=== PATIENT | female | born 1985 | race Caucasian/White ===

== ENCOUNTER 2016-12-23 21:43 | Inpatient (IN) | payer MEDICAID, OTHER ==
[2016-12-23] MEDS ORDERED: ceFAZolin 1,000 MG VIAL IM STA (22:12)
[2016-12-23] MEDS ORDERED: DIPH,PERTUS(ACELL)TETVAC-LF 0.5 ML VIAL IM ONE (22:13)
--- NOTE | 2016-12-23 22:19 | ED ---
General Adult HPI - General Chief complaint: Psychiatric Symptoms Stated complaint: mental health Time Seen by Provider: 12/23/16 21:50 Source: patient, RN notes reviewed Mode of arrival: ambulatory Limitations: no limitations - History of Present Illness Initial comments: This is a 31-year-old female who presents to the emergency department stating she is suicidal. Patient states the court system took her kids away and let another woman and her ex- adopted children. Patient states at that point in time she took a bunch heroin and injected it 5 days ago along with that she took a bunch of her gabapentin. Patient states she woke up 2 days later. Patient states she went down to [place] at which point time she stated she fell and had a puncture wound to her left hand and she believes that there is a little bit red. Patient states she hasn't had a tetanus shot recently. Patient states since 5 days ago she has not done any other drugs or taking any other extra prescription medications. Patient states she had 1 shot of alcohol today but no more. Patient states she still cannot stop thinking about killing herself because she cannot see her children and so she decided to come to the emergency department. Patient denies any headache patient denies numbness weakness. Patient denies any nausea vomiting or diarrhea. Patient denies any chest pain palpitations difficulty breathing or shortness of breath per patient denies any abdominal pain. Patient denies any numbness weakness. Patient states she does have contractures of her right wrist and hand. She states that is from a surgery 9 months ago to relieve carpal tunnel syndrome. - Related Data Home Medications Medication Instructions Recorded Confirmed Albuterol Nebulized [Ventolin 2.5 mg INHALATION RT-BID 12/23/16 12/23/16 Nebulized] DULoxetine HCL [Cymbalta] 60 mg PO DAILY 12/23/16 12/23/16 Gabapentin 600 mg PO TID 12/23/16 12/23/16 HYDROcodone/APAP 10-325MG [[place] 1 tab PO QID PRN 12/23/16 12/23/16 10-325] Ibuprofen [Motrin] 600 mg PO BID PRN 12/23/16 12/23/16 Montelukast [Singulair] 10 mg PO DAILY 12/23/16 12/23/16 Nortriptyline [Pamelor] 50 mg PO BID 12/23/16 12/23/16 Allergies Allergy/AdvReac Type Severity Reaction Status Date / Time bee pollen Allergy Swelling Verified 12/23/16 22:35 coconut oil Allergy Swelling Verified 12/23/16 22:35 Penicillins Allergy Swelling Verified 12/23/16 22:35 shellfish derived [Shellfish] Allergy Swelling Verified 12/23/16 22:35 Review of Systems ROS Statement: Those systems with pertinent positive or pertinent negative responses have been documented in the HPI. ROS Other: All systems not noted in ROS Statement are negative. Past Medical History Past Medical History: Asthma Additional Past Medical History / Comment(s): chronic knee pain, right ganglion cyst. History of Any Multi-Drug Resistant Organisms: None Reported Past Surgical History: Tubal Ligation Additional Past Surgical History / Comment(s): right hand surgery, left knee arthroscopy, right carpal tunnel release. Past Psychological History: Anxiety, Depression Smoking Status: Current every day smoker Past Alcohol Use History: None Reported Past Drug Use History: Heroin, Marijuana, Prescription Drug Abuse General Exam - General Exam Comments Initial Comments: GENERAL: Patient is well-developed and well-nourished. Patient is nontoxic and well- hydrated and is in mild distress. ENT: Neck is soft and supple. No significant lymphadenopathy is noted. Oropharynx is clear. Moist mucous membranes. Neck has full range of motion without eliciting any pain. EYES: The sclera were anicteric and conjunctiva were pink and moist. Extraocular movements were intact and pupils were equal round and reactive to light. Eyelids were unremarkable. PULMONARY: Unlabored respirations. Good breath sounds bilaterally. No audible rales rhonchi or wheezing was noted. CARDIOVASCULAR: There is a regular rate and rhythm without any murmurs gallops or rubs. ABDOMEN: Soft and nontender with normal bowel sounds. No palpable organomegaly was noted. There is no palpable pulsatile mass. SKIN: Skin is clear with no lesions or rashes and otherwise unremarkable. NEUROLOGIC: Patient is alert and oriented x3. Cranial nerves II through XII are grossly intact. Motor and sensory are also intact. Normal speech, volume and content. Symmetrical smile. MUSCULOSKELETAL: Patient has a puncture wound in the middle of her left hand on the palmar surface is mildly erythematous around the puncture wound there is no fluctuation and there does not appear to be any abscess. LYMPHATICS: No significant lymphadenopathy is noted PSYCHIATRIC: Patient states she suicidal ever since the court system is taken away her children. Limitations: no limitations Course Vital Signs 12/23/16 21:44 Temperature 98.9 F Pulse Rate 86 Respiratory 28 H Rate Blood Pressure 173/120 O2 Sat by Pulse 95 Oximetry Medical Decision Making - Medical Decision Making EKG shows a normal sinus rhythm at [address] interval is on a 48 QRS is 72 QT interval 380 QTC is 446 per patient's EKG shows no ST segment elevation or depression or T wave abnormalities are noted. - Lab Data Lab Results 12/23/16 Range/Units 22:40 Urine Opiates Screen Not Detected (NotDetected) Ur Oxycodone Screen Not Detected (NotDetected) Urine Methadone Screen Not Detected (NotDetected) Ur Propoxyphene Screen Not Detected (NotDetected) Ur Barbiturates Screen Not Detected (NotDetected) U Tricyclic Antidepress Detected H (NotDetected) Ur Phencyclidine Scrn Not Detected (NotDetected) Ur Amphetamines Screen Not Detected (NotDetected) U Methamphetamines Scrn Not Detected (NotDetected) U Benzodiazepines Scrn Detected H (NotDetected) Urine Cocaine Screen Detected H (NotDetected) U Marijuana (THC) Screen Detected H (NotDetected) Disposition Clinical Impression: Suicidal ideation, Depression Disposition: ADMITTED IP TO THIS HOSP Referrals: Ryanne Guillory DO [Primary Care Provider] - 1-2 days Time of Disposition: 01:41
--- NOTE | 2016-12-23 22:54 | XR ---
EXAM: XR Left Hand Complete, 3 or More Views. CLINICAL HISTORY: Reason: Pain TECHNIQUE: Frontal, lateral and oblique views of the left hand. COMPARISON: No relevant prior studies available. FINDINGS: Bones: There is a ring overlying the fourth proximal phalanx, limiting evaluation. No acute fracture. Joints: Unremarkable. No dislocation. Soft tissues: Unremarkable. No radiopaque foreign body. IMPRESSION: No acute findings.
[2016-12-24] MEDS ORDERED: LORazepam 1 MG TAB PO PRN (02:10)
[2016-12-24] MEDS ORDERED: MAG HYDROX/AL HYDROX/SIMETH 30 ML CUP PO PRN (02:10)
[2016-12-24] MEDS ORDERED: MAGNESIUM HYDROXIDE 2,400 MG/10 ML CUP PO PRN (02:10)
[2016-12-24] MEDS ORDERED: ZIPRASIDONE 20 MG VIAL IM PRN (02:10)
[2016-12-24] MEDS ORDERED: LORazepam 2 MG/ML SYRINGE IM PRN (02:13)
[2016-12-24 02:41] LABS: Appearance,Urine Cloudy (Clear); Bilirubin,Urine Negative (Negative); Calcium Oxalate Crystals,Urine Occasional /hpf; Glucose,Urine (UA) Negative (Negative); Ketones,Urine Negative (Negative); Leukocyte Esterase,Urine Negative (Negative); Mucus,Urine Many /hpf; Nitrite,Urine Negative (Negative); PH, Urine 6.5 (5.0-8.0); Particle Count 6429; Protein,Urine Trace (Negative); RBC,Urine 1 /hpf (0-5); Specific Gravity,Urine 1.022 (1.001-1.035); Squamous Epithelial Cell,Urine 7 /hpf (0-4); UA Billing (MACRO vs. MICRO) MICRO; WBC,Urine 1 /hpf (0-5)
[2016-12-24 03:27] VITALS: BMI 38.0
[2016-12-24] MEDS: IBUPROFEN 600 MG TAB PO PRN ×2 (03:43→19:00)
[2016-12-24] MEDS ORDERED: NICOTINE 21MG/24HR PATCH TRANSDERM SCH (09:00)
[2016-12-24] MEDS: DULoxetine HCL 60 MG CAPSULE.DR PO SCH (09:46)
[2016-12-24] MEDS: GABAPENTIN 300 MG CAP PO SCH ×3 (09:46→21:43)
[2016-12-24] MEDS: MONTELUKAST 10 MG TAB PO SCH (09:46)
[2016-12-24] MEDS: NICOTINE POLACRILEX 2 MG GUM BUCCAL PRN ×3 (09:49→15:58)
[2016-12-24] MEDS: oxyCODONE-APAP 10-325MG 1 EACH TAB PO PRN ×3 (09:50→21:42)
[2016-12-24] MEDS: clonazePAM 0.5 MG TAB PO PRN ×2 (09:50→19:00)
--- NOTE | 2016-12-24 10:12 | P.HP ---
Psychiatric H&P - . H&P Date: 12/24/16 History & Physical: IDENTIFYING DATA: Ms. Santiago is a 31-year-old female who presented to unit voluntarily with complaints of depression and suicidal ideation. HISTORY OF PRESENT ILLNESS: She stated that she was doing "fairly well" until she received notification that her ex-boyfriend and his new are adopting their 2 children. The adoption hearing was held last Friday in [facility]. She alleges that her corporate associate attorney "quit" the day before and she was unable to attend the adoption hearing. When she received the news that her children have been adopted she went to [place], injected "$300 of heroin"and took all of her gabapentin and Cymbalta in a suicide attempt. She alleged she "woke up" 2 days later and called her . She described continued feelings depression and thoughts of suicide. Her wanted to come in hospital because he feels she is unsafe to be left alone. In addition she complains of chronic, severe and persistent pain in her right hand that extends upper arm to her neck and down her opposite arm. The pain began with what was diagnosed as carpal tunnel syndrome. Following surgery for relief of the carpal tunnel on her right arm she developed worsening pain affecting her right arm, shoulder and neck. She stated that she was referred to [facility] for evaluation of pain and diagnosed with a complex regional pain syndrome. She describes the pain is persistent and crippling; "like I'm holding my hand and fire all the time." She reported mild to moderately for pain with the current regimen that includes Neurontin and Percocet. These medications are prescribed by regional pain specialist. Her depression symptoms include sadness, pessimism, loss of pleasure, guilty feelings, punishment feelings, self dislike, suicidal thoughts or wishes, self criticalness, loss of interest, worthlessness, loss of energy, changes in sleeping pattern, changes in appetite, concentration difficulty and tiredness or fatigue. She complains of anxiety that is present throughout the day and contributes to her restlessness and difficulty sleeping. She denied anxiety symptoms suggestive of panic attack. She denied periods of elevated mood or sustained irritability consistent with fareed or hypomania. She denied use of alcohol and denied use of drugs and the above episode where she attempted to overdose on heroin. However, her UDS was positive for tricyclic antidepressants , benzodiazepines, cocaine and marijuana. Her blood alcohol level was 0. PAST PSYCHIATRIC HISTORY: This is his third admission to this psychiatric unit. Alex to her in 2006 and 2007. Her discharge diagnoses from the October 2007 admission was bipolar disorder, mixed, history of ADHD, likely opiate dependence , polysubstance abuse, histrionic and borderline personality traits , homelessness and occupational stressors. Her discharge medications include Geodon and Klonopin. She denied admission to other psychiatric facilities. She is currently not involved in mental health treatment. PAST MEDICAL HISTORY: She has a history of asthma, chronic knee pain, right ganglion cyst and the diagnosis of complex regional pain syndrome. Her surgeries include carpal tunnel release, left knee arthroscopic surgery and tubal ligation. ALLERGIES: Penicillin. SUBSTANCE USE HISTORY: She has a history of opiate use disorder and alleged that she had been abstinent for 3 years until she injected the heroin last week. She stated that she has used most other drugs but denied that they were a problem; "I would take anything that someone would offer me." She stated she had a problem with alcohol "in the past" but denied current abuse. She denied involvement in substance abuse treatment programs. She scorned her experiences with narcotics and Alcoholics Anonymous. Tobacco use: She alleges that she was sleep walking 2-3 packs per day prior to admission FAMILY PSYCHIATRIC/SUBSTANCE USE HISTORY: She alleges that both her mother and father were "drug addicts". Her cousins are "junkies" and her answers are "alcoholics". LEGAL HISTORY: She denied that she is on probation, parole or has pending charges. According to information in the [facility] court docket she has passed charges for: Domestic violence, larceny in a building, home invasion first-degree, attempted larceny, disorderly persons, obstructing a health officer, SOCIAL HISTORY: She was born and raised in intact family in [place]. She has an older sister. She alleges that her parents neglected her because of their drug use. She has attended special education and left school in 11th grade. She is able to read, has no difficulty with arithmetic but is unable to spell. She had 2 children with a long-term boyfriend. They in 2006 and he was awarded custody. She was able to visit the children when he lived in [facility]. He moved from [place] [facility] [place] 2 years ago. She has had no contact with the children and did not know their whereabouts until she received a letter from [facility] notified her that her and his are petitioning to adopt the children. 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 She has been 2 years and described a supportive relationship with her . She lives in her 's mother's home with her . They have no children. He is currently unemployed. He works unskilled factory jobs. MENTAL STATUS EXAM: She presented as a morbidly obese acutely distressed 31-year -old female. She was tearful and dramatic. She made eye contact and attended to the interview. Her right fingers and wrist were contracted. She cradled her right arm. She was unable to fully extend her wrist and fingers. She was unable to elevate her right arm above the shoulder. She had a distressed facial expression. She was alert and oriented to person, place and time. She was restless and appeared to demonstrate intermittent tics and tremor. Her speech was dysarthric, spontaneous with increased rate but normal volume. Her affect was depressed, labile at times intense and appropriate and at other times reactive. She describes suicidal ideation or wishes. She denied homicidal ideation. She expresses feelings of hopelessness, helplessness and worthlessness. She ruminated about her pain, inability to work and distress over the adoption of her 2 children. She did not express phobias, ideas reference, paranoid ideation or delusional thinking. Her thinking was concrete and her associations were coherent and logical. She did not express clang associations, perseveration, neologisms or blocking. She denied hallucinations and did not appear to responding to internal stimuli. Global impression of intellect is below average. She is aware of her illness and need for mental health treatment. STRENGTHS: Stable housing, supportive relationships. WEAKNESSES: recurrent drug use, poor coping skills, poor problem-solving skills. IMPRESSION: She is a 31-year-old woman who has a developmental disability; most likely learning disability, conduct disorder, substance use disorders and a chronic pain disorder presented to the unit with complaints of depression and suicidal ideation. Her mood changes markedly after she learned that her ex- boyfriend and his new have adopted their 2 children. Her reaction to the adoption is surprising since he was awarded custody of the children after they and she has had no contact with her children for last 2 years. She is pain and medication focused. She complains of depression and described the full gamut of depressive symptoms. There is no evidence of psychotic symptoms. I could find no evidence of a history of fareed or hypomania. She should best be treated on an outpatient basis with a combination of psychopharmacology and multimodal therapy. PRINCIPLE DIAGNOSIS: Unspecified depressive disorder, rule out major depressive disorder, rule out opiate use disorder, rule out cocaine use disorder, unspecified learning disorder, unspecified personality disorder, complex regional pain syndrome RECOMMENDATION: Continue inpatient psychiatric hospitalization. Suicide precautions with 15 minute checks. Consult medicine for initial physical exam and medical history. Continue Cymbalta 60 mg daily and Neurontin 600 mg 3 times a day. Continue outpatient pain medication Percocet 10/325 4 times a day when necessary (verified prescription). Klonopin 0.5 mg 3 times a day when necessary for anxiety. Discuss augmentation of Cymbalta with a second generation antipsychotic such as Abilify. Encourage participation in therapeutic groups and activities. Evaluate clinical status response to treatment on a daily basis. Allergies Allergy/AdvReac Type Severity Reaction Status Date / Time bee pollen Allergy Swelling Verified 12/24/16 03:56 coconut oil Allergy Swelling Verified 12/24/16 03:56 Penicillins Allergy Swelling Verified 12/24/16 03:56 shellfish derived [Shellfish] Allergy Swelling Verified 12/24/16 03:56 Vital Signs Temp 97.0 F L 12/24/16 03:18 Pulse 69 12/24/16 03:18 Resp 17 12/24/16 03:18 BP 141/87 12/24/16 03:18 Pulse Ox 99 12/24/16 03:18 Intake & Output 12/23/16 12/24/16 12/24/16 18:59 06:59 18:59 Weight 116.743 kg Laboratory Last Values Urine Color Yellow 12/23/16 22:40 Urine Appearance Cloudy (Clear) H 12/23/16 22:40 Urine pH 6.5 (5.0-8.0) 12/23/16 22:40 Ur Specific [place] 1.022 (1.001-1.035) 12/23/16 22:40 Urine Protein Trace (Negative) H 12/23/16 22:40 Urine Glucose (UA) Negative (Negative) 12/23/16 22:40 Urine Ketones Negative (Negative) 12/23/16 22:40 Urine Blood Negative (Negative) 12/23/16 22:40 Urine Nitrite Negative (Negative) 12/23/16 22:40 Urine Bilirubin Negative (Negative) 12/23/16 22:40 Urine Urobilinogen 2.0 mg/dL (<2.0) 12/23/16 22:40 Ur Leukocyte Esterase Negative (Negative) 12/23/16 22:40 Urine RBC 1 /hpf (0-5) 12/23/16 22:40 Urine WBC 1 /hpf (0-5) 12/23/16 22:40 Ur Squamous Epith Cells 7 /hpf (0-4) H 12/23/16 22:40 Calcium Oxalate Crystal Occasional /hpf (None) H 12/23/16 22:40 Urine Mucus Many /hpf (None) H 12/23/16 22:40 Urine Opiates Screen Not Detected (NotDetected) 12/23/16 22:40 Ur Oxycodone Screen Not Detected (NotDetected) 12/23/16 22:40 Urine Methadone Screen Not Detected (NotDetected) 12/23/16 22:40 Ur Propoxyphene Screen Not Detected (NotDetected) 12/23/16 22:40 Ur Barbiturates Screen Not Detected (NotDetected) 12/23/16 22:40 U Tricyclic Antidepress Detected (NotDetected) H 12/23/16 22:40 Ur Phencyclidine Scrn Not Detected (NotDetected) 12/23/16 22:40 Ur Amphetamines Screen Not Detected (NotDetected) 12/23/16 22:40 U Methamphetamines Scrn Not Detected (NotDetected) 12/23/16 22:40 U Benzodiazepines Scrn Detected (NotDetected) H 12/23/16 22:40 Urine Cocaine Screen Detected (NotDetected) H 12/23/16 22:40 U Marijuana (THC) Screen Detected (NotDetected) H 12/23/16 22:40 12/24/16 07:42 12/24/16 07:45 12/24/16 09:37
[2016-12-24] MEDS: ACETAMINOPHEN TAB 325 MG TAB PO PRN ×2 (12:35→21:08)
[2016-12-24] MEDS: ALBUTEROL NEBULIZED 2.5 MG/3 ML INHALATION SCH ×2 (12:42→20:38)
--- NOTE | 2016-12-24 19:47 | P.HPIM ---
History of Present Illness H&P Date: 12/24/16 Chief Complaint: Depression with Suicidal ideation This is a 31-year-old female who presents to the emergency department stating she is having suicidal thoughts. Patient states the court system took her kids away and let another woman and her ex- adopt her children. Patient states at that point in time she took a bunch heroin and injected it 5 days ago along with that she took a bunch of her gabapentin. Patient states she woke up 2 days later. Patient states since 5 days ago she has not done any other drugs or taking any other extra prescription medications. Patient states she had 1 shot of alcohol today but no more. Patient states she still cannot stop thinking about killing herself because she cannot see her children and so she decided to come to the emergency department. On review of systems Patient denies any headache patient denies numbness weakness. Patient denies any chest pain palpitations or shortness of breath per patient denies any abdominal pain, no nausea or vomiting no diarrhea or constipation Patient states she does have contractures of her right wrist and hand. She states that is from a surgery 9 months ago to relieve carpal tunnel syndrome. And since then she has a severe contracture in her hand Past Medical History Past Medical History: Asthma Additional Past Medical History / Comment(s): chronic knee pain, right ganglion cyst. History of Any Multi-Drug Resistant Organisms: None Reported Past Surgical History: Tubal Ligation Additional Past Surgical History / Comment(s): right hand surgery, left knee arthroscopy, right carpal tunnel release. Past Anesthesia/Blood Transfusion Reactions: No Reported Reaction Past Psychological History: Anxiety, Depression Smoking Status: Current every day smoker Past Alcohol Use History: None Reported Past Drug Use History: Heroin, Marijuana, Prescription Drug Abuse Medications and Allergies Home Medications Medication Instructions Recorded Confirmed Type Albuterol Nebulized [Ventolin 2.5 mg INHALATION RT-BID 12/23/16 12/24/16 History Nebulized] DULoxetine HCL [Cymbalta] 60 mg PO DAILY 12/23/16 12/24/16 History Gabapentin 600 mg PO TID 12/23/16 12/24/16 History HYDROcodone/APAP 10-325MG [[place]yl[place] 1 tab PO QID PRN 12/23/16 12/24/16 History 10-325] Ibuprofen [Motrin] 600 mg PO BID PRN 12/23/16 12/24/16 History Montelukast [Singulair] 10 mg PO DAILY 12/23/16 12/24/16 History Nortriptyline [Pamelor] 50 mg PO BID 12/23/16 12/24/16 History Allergies Allergy/AdvReac Type Severity Reaction Status Date / Time bee pollen Allergy Swelling Verified 12/24/16 03:56 coconut oil Allergy Swelling Verified 12/24/16 03:56 Penicillins Allergy Swelling Verified 12/24/16 03:56 shellfish derived [Shellfish] Allergy Swelling Verified 12/24/16 03:56 Physical Exam Vitals: Vital Signs Temp Pulse Pulse Resp BP BP Pulse Ox 12/24/16 03:18 97.0 F L 69 17 141/87 99 12/24/16 02:51 97.5 F L 73 16 131/79 98 12/23/16 21:44 98.9 F 86 28 H 173/120 95 Intake and Output 12/24/16 12/24/16 12/24/16 06:59 14:59 22:59 Other: Weight 116.743 kg In general patient is alert and oriented 3 in no apparent distress HEENT head normocephalic and atraumatic Neck is supple no JVD no goiter no lymphadenopathy Cardiac exam reveals regular heart sounds S1 and S2 no gallops no murmurs Chest exam reveals a few scattered rhonchi bilaterally Abdomen is soft nontender no organomegaly with normal bowel sounds Extremity exam reveals no edema no cyanosis or clubbing, there is severe contracture in the right hand which is chronic per patient Neurological examination reveals no gross deficit Results Labs: Abnormal Lab Results - Last 24 Hours (Table) 12/23/16 12/23/16 Range/Units 22:40 22:40 Urine Appearance Cloudy H (Clear) Urine Protein Trace H (Negative) Ur Squamous Epith Cells 7 H (0-4) /hpf Calcium Oxalate Crystal Occasional H (None) /hpf Urine Mucus Many H (None) /hpf U Tricyclic Antidepress Detected H (NotDetected) U Benzodiazepines Scrn Detected H (NotDetected) Urine Cocaine Screen Detected H (NotDetected) U Marijuana (THC) Screen Detected H (NotDetected) Thrombosis Risk Factor Assmnt - Choose All That Apply Any of the Below Risk Factors Present?: Yes Each Factor Represents 1 point: Obesity (BMI >25) Other Risk Factors: No Other congenital or acquired thrombophilia - If yes, enter type in comment: No Thrombosis Risk Factor Assessment Total Risk Factor Score: 1 Thrombosis Risk Factor Assessment Level: Low Risk Assessment and Plan Plan: #1 depression with suicidal thoughts management per primary psychiatry team #2 asthma stable at this time continue was current inhaler #3 left knee swelling and pain follow up with primary care physician who performed knee aspiration and steroid injection on a regular basis for patient #4 right hand contracture chronic At this time home medications reviewed and reordered continue with current regimen Will follow during this admission for medical management
[2016-12-24] MEDS ORDERED: HALOPERIDOL 1 MG TAB PO SCH (21:00)
[2016-12-25 06:56] VITALS: BP 133/81; PULSE 68; RESP 18; TEMP 97.5
[2016-12-25] MEDS: oxyCODONE-APAP 10-325MG 1 EACH TAB PO PRN ×2 (06:57→12:34)
[2016-12-25] MEDS: GABAPENTIN 300 MG CAP PO SCH (08:12)
[2016-12-25] MEDS: MONTELUKAST 10 MG TAB PO SCH (08:12)
[2016-12-25] MEDS: DULoxetine HCL 60 MG CAPSULE.DR PO SCH (08:12)
[2016-12-25] MEDS: clonazePAM 0.5 MG TAB PO PRN (08:12)
[2016-12-25 11:49] LABS: ALT 25 U/L (9-52); AST 22 U/L (14-36); Alkaline Phosphatase 67 U/L (38-126); Anion Gap 7 mmol/L; Blood Urea Nitrogen 11 mg/dL (7-17); Calcium 8.9 mg/dL (8.4-10.2); Carbon Dioxide 26 mmol/L (22-30); Chloride 105 mmol/L (98-107); Glucose 87 mg/dL (74-99); Non-African American GFR(MDRD) >60 (>60 ml/min/1.73 sqM); Potassium 4.6 mmol/L (3.5-5.1); Sodium 138 mmol/L (137-145); Total Bilirubin 0.5 mg/dL (0.2-1.3); Total Protein 6.9 g/dL (6.3-8.2)
[2016-12-25 11:57] LABS: Basophils # (A) 0.1 k/uL (0-0.2); Basophils % (A) 1 %; CH 30.6; CHCM 32.4; Eosinophils # (A) 0.1 k/uL (0-0.7); Eosinophils % (A) 1 %; HCT 38.1 % (34.0-46.0); HDW 2.39; Luc # (Auto) 0.21; Luc % (Auto) 3; Lymphocytes # (A) 2.7 k/uL (1.0-4.8); Lymphocytes % (A) 37 %; MCHC 31.6 g/dL (31.0-37.0); MCV 94.9 fL (80.0-100.0); Mean Platelet Volume 7.2; Monocytes # (A) 0.3 k/uL (0-1.0); Monocytes % (A) 4 %; Neutrophils # (A) 3.9 k/uL (1.3-7.7); Neutrophils % (A) 54 %; RBC 4.01 m/uL (3.80-5.40); RDW 14.4 % (11.5-15.5); WBC 7.3 k/uL (3.8-10.6); WBC (Perox) 7.72
--- NOTE | 2016-12-25 13:43 | P.DS ---
Providers Date of admission: 12/24/16 01:42 Attending physician: Sriram Isidro MD Consults: 12/24/16 02:10 Consult Physician Routine Consulting Provider: Alexander Carroll Consult Reason/Comments: For H & P for Medical Follow Up Do you want consulting provider notified?: Yes, Notify in am Primary care physician: Ryanne Guillory - Discharge Diagnosis(es) (1) Opioid use disorder, severe, dependence Status: Chronic Priority: High (2) Depressive disorder, not elsewhere classified Status: Acute Priority: Low (3) Complex regional pain syndrome i of right upper limb Status: Chronic Priority: High (4) Unspecified personality disorder Status: Chronic Priority: Medium (5) Suicidal ideation Status: Acute Priority: Low Hospital Course: Ms. Santiago is a 31-year-old female who presented to unit voluntarily with complaints of depression and suicidal ideation. She stated that she was doing "fairly well" until she received notification that her ex-boyfriend and his new are adopting their 2 children. The adoption hearing was held last Friday in [facility]. She alleges that her data recovery planner "quit" the day before and she was unable to attend the adoption hearing. When she received the news that her children have been adopted she went to [place], injected "$300 of heroin"and took all of her gabapentin and Cymbalta in a suicide attempt. She alleged she "woke up" 2 days later and called her . She described continued feelings depression and thoughts of suicide. Her wanted to come in hospital because he feels she is unsafe to be left alone. In addition she complains of chronic, severe and persistent pain in her right hand that extends upper arm to her neck and down her opposite arm. The pain began with what was diagnosed as carpal tunnel syndrome. Following surgery for relief of the carpal tunnel on her right arm she developed worsening pain affecting her right arm, shoulder and neck. She stated that she was referred to [facility] for evaluation of pain and diagnosed with a complex regional pain syndrome. She describes the pain is persistent and crippling; "like I'm holding my hand and fire all the time." She reported mild to moderately for pain with the current regimen that includes Neurontin and Percocet. These medications are prescribed by regional pain specialist. Her depression symptoms include sadness, pessimism, loss of pleasure, guilty feelings, punishment feelings, self dislike, suicidal thoughts or wishes, self criticalness, loss of interest, worthlessness, loss of energy, changes in sleeping pattern, changes in appetite, concentration difficulty and tiredness or fatigue. She complains of anxiety that is present throughout the day and contributes to her restlessness and difficulty sleeping. She denied anxiety symptoms suggestive of panic attack. She denied periods of elevated mood or sustained irritability consistent with fareed or hypomania. She denied use of alcohol and denied use of drugs and the above episode where she attempted to overdose on heroin. However, her UDS was positive for tricyclic antidepressants , benzodiazepines, cocaine and marijuana. Her blood alcohol level was 0. his is his third admission to this psychiatric unit. Alex to her in 2006 and 2007. Her discharge diagnoses from the October 2007 admission was bipolar disorder, mixed, history of ADHD, likely opiate dependence, polysubstance abuse , histrionic and borderline personality traits , homelessness and occupational stressors. Her discharge medications include Geodon and Klonopin. She denied admission to other psychiatric facilities. She is currently not involved in mental health treatment. She has a history of asthma, chronic knee pain, right ganglion cyst and the diagnosis of complex regional pain syndrome. Her surgeries include carpal tunnel release, left knee arthroscopic surgery and tubal ligation. She has a history of opiate use disorder and alleged that she had been abstinent for 3 years until she injected the heroin last week. She stated that she has used most other drugs but denied that they were a problem; "I would take anything that someone would offer me." She stated she had a problem with alcohol "in the past" but denied current abuse. She denied involvement in substance abuse treatment programs. She scorned her experiences with narcotics and Alcoholics Anonymous. We admitted her to the psychiatric unit under care of this filing writer. We provided a biopsychosocial assessment. The multi site leasing consultant completed initial physical exam and medical history and diagnosed asthma, left knee pain and right hand contracture. We resumed her outpatient medications including Ventolin nebulizer 2.5 mg twice a day when necessary for asthma, Cymbalta 60 mg daily, gabapentin 600 mg 3 times a day, Haldol 1 mg at bedtime, Singulair 10 mg by mouth daily, clonazepam 0.5 mg 3 times a day when necessary for anxiety and Percocet 10-325 mg. We resumed the Percocet because she insisted that the [place] was ineffective and she produced a prescription written by an outpatient provider documenting that she had been prescribed Percocet as an outpatient. However, she revealed that she had ran out of Percocet for the month of December. I suspect that her presentation and her purported suicide ideations related to having sold her consumed her month's supply of Percocet. She posed no management problem and displayed no episodes of behavioral dyscontrol or self- harm. The day after admission she requests to be discharged. She denied suicidal ideation, plan or intent. She reported that her mood was markedly improved. She attributed the improvement in mood to resume her outpatient medications particular the Haldol and clonazepam. I explained that we will not prescribe with a prescription percent Percocet. She requested a two-week supply of clonazepam until she obtains her next refill of Percocet. At the time of discharge she denied thoughts of or suicide. She denied feelings of hopelessness, helplessness or worthlessness. Patient Condition at Discharge: Stable Plan - Discharge Summary New Discharge Prescriptions: clonazePAM [KlonoPIN] 0.5 mg PO TID PRN #42 tab PRN Reason: Anxiety DULoxetine HCL [Cymbalta] 60 mg PO DAILY #30 cap Gabapentin 600 mg PO TID #90 Haloperidol [Haldol] 1 mg PO HS #30 tab Montelukast [Singulair] 10 mg PO DAILY #30 Nicotine Polacrilex [Quit 2] 2 mg BUCCAL Q4H #14 lozenge Discharge Medication List HYDROcodone/APAP 10-325MG [[place] 10-325] 1 tab PO QID PRN 12/23/16 [History] Ibuprofen [Motrin] 600 mg PO BID PRN 12/23/16 [History] Albuterol Nebulized [Ventolin Nebulized] 2.5 mg INHALATION RT-BID neb 12/25/16 [Rx] DULoxetine HCL [Cymbalta] 60 mg PO DAILY #30 cap 12/25/16 [Rx] Gabapentin 600 mg PO TID #90 12/25/16 [Rx] Haloperidol [Haldol] 1 mg PO HS #30 tab 12/25/16 [Rx] Montelukast [Singulair] 10 mg PO DAILY #30 12/25/16 [Rx] Nicotine Polacrilex [Quit 2] 2 mg BUCCAL Q4H #14 lozenge 12/25/16 [Rx] clonazePAM [KlonoPIN] 0.5 mg PO TID PRN #42 tab 12/25/16 [Rx] oxyCODONE-APAP 10-325MG [Percocet 10-325 mg] 1 each PO Q6H PRN tab 12/25/16 [Rx ] Follow up Appointment(s)/Referral(s): [facility] [Outside] - 12/27/16 9:00 am (12/27/16 at [address] ) Ryanne Guillory DO [Primary Care Provider] - 1-2 days Patient Instructions/Handouts: How to Stop Smoking (DC), Depression (DC), Suicide Prevention for Adults (DC) Activity/Diet/Wound Care/Special Instructions: No alcohol or street drugs, activity as tolerated, diet as tolerated, remove firearms from home. Follow up with outpatient provider as set up at time of discharge, follow up with PCP in one to two days. Call crisis line or [phone] if having thoughts to hurt himself or anyone else. Discharge Disposition: HOME SELF-CARE
== END 2016-12-25 12:39 | disposition home or self-care (01) | DRG 881 ==
LOC: EC 21:43 → 3MHU 12-24 01:42
PROVIDERS: ADMIT Psychiatry & Neurology Psychiatry; ATTEND Psychiatry & Neurology Psychiatry
DX: F32.9 Major depressive disorder, single episode, unspecified (principal); F11.20 Opioid dependence, uncomplicated; G90.50 Complex regional pain syndrome I, unspecified; F17.200 Nicotine dependence, unspecified, uncomplicated; F41.9 Anxiety disorder, unspecified; F60.9 Personality disorder, unspecified; F81.9 Developmental disorder of scholastic skills, unspecified; F90.9 Attention-deficit hyperactivity disorder, unspecified type; G56.00 Carpal tunnel syndrome, unspecified upper limb; G89.29 Other chronic pain; J45.909 Unspecified asthma, uncomplicated; Z79.899 Other long term (current) drug therapy; Z91.5 Personal history of self-harm
CPT/HCPCS: 80053; 80306; 81001; 84443; 85025; 90715; 93005; 94640

== ENCOUNTER → 2017-03-04 | Outpatient (CLI) | payer OTHER ==
--- NOTE | 2017-03-04 23:00 | MR ---
EXAMINATION TYPE: MR cervical spine wo con DATE OF EXAM: 03/04/2017 COMPARISON: NONE HISTORY: neck pain and arm tingling TECHNIQUE: Multiplanar, multisequence images of the cervical spine were acquired. Cervical vertebra show mild straightening. There is mild narrowing and decreased signal in the disks at C4-5 C5-6. There are posterior mild to moderate disc herniations at C4-5 C5-6 and C6-7. There is e levation of the posterior longitudinal ligament. There is no paraspinal mass. The spinal canal is alicia rowed to 7 mm at C4-5 and C5-6. Cervical spinal cord has normal signal pattern. There is no evidence of edema. There is no sign of a fracture. Posterior elements are intact. Brainstem appears normal. IMPRESSION: Multilevel moderate cervical posterior disc herniation that is more severe at C4-5 and C5-6 in this r elatively young patient. There is 7 to 8 mm spinal stenosis at C4-5 and C5-6.
== END | disposition home or self-care (01) ==
LOC: RADMRIMAIN 18:35
PROVIDERS: ATTEND Specialist
DX: M48.02 Spinal stenosis, cervical region (principal); M50.221 Other cervical disc displacement at C4-C5 level
CPT/HCPCS: 72141

== ENCOUNTER → 2018-10-29 | Outpatient (CLI) | payer OTHER ==
[2018-10-26 15:17] VITALS: BMI 36.5
[2018-10-29 12:52] VITALS: BP 136/85; PULSE 87; RESP 16
--- NOTE | 2018-10-29 13:34 | P.CONS ---
History of Present Illness - Reason for Consult Consult date: 10/29/18 - History of Present Illness This is a 31-year-old lady with a significant psychiatric history and pain that starts in her neck down to her lower back. Her neck pain radiates down both arms with numbness and tingling in both hands and her lower back pain also radiates down both legs with numbness in both feet as she states. 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 Her pain gets worse by any Activity that she does and improves by using [place], Neurontin and by smoking joint of marijuana as she states. She does smoke one pack of cigarettes a day. The patient has history of bipolar disease with suicidal thoughts previously however she denies any suicidal or homicidal thoughts at this point. The patient was emotional and most of the time during the interview especially when she mentioned that her children were taken away from her. Her pain wakes her up at night as she states. Review of Systems Musculoskeletal: Reports as per HPI Neurological: Reports as per HPI Psychiatric: Reports depression, Reports sadness/tearfulness Past Medical History Past Medical History: Asthma, Pneumonia Additional Past Medical History / Comment(s): chronic neck and back pain,"white spots on my brain",chronic lt knee pain, right ganglion cyst. Steroids Sep 2018 History of Any Multi-Drug Resistant Organisms: None Reported Past Surgical History: Tubal Ligation Additional Past Surgical History / Comment(s): right hand surgery, left knee arthroscopy x2, right carpal tunnel release. Past Anesthesia/Blood Transfusion Reactions: No Reported Reaction, Motion Sickness, Postoperative Nausea & Vomiting (PONV) Additional Past Anesthesia/Blood Transfusion Reaction / Comm: states "wakes up during anesthesia" Past Psychological History: Anxiety, Depression Additional Psychological History / Comment(s): Denies wanting to hurt self at this time, states "depressed of verbalizing having burning pain daily." Smoking Status: Current every day smoker Past Alcohol Use History: None Reported Additional Past Alcohol Use History / Comment(s): started smoking at 10,1ppd Past Drug Use History: Heroin, Marijuana Additional Drug Use History / Comment(s): states "tried to use one time heroin when attempted to kill myself 2 yrs ago in December,no addiction problems." denies prescription drug abuse. uses marijuana daily - Past Family History Mother Family Medical History: Cancer Additional Family Medical History / Comment(s): breast Father Family Medical History: Cancer Additional Family Medical History / Comment(s): colon,stomach Medications and Allergies Home Medications Medication Instructions Recorded Confirmed Type DULoxetine HCL [Cymbalta] 60 mg PO DAILY #30 cap 12/25/16 10/29/18 Rx Gabapentin [Neurontin] 1,200 mg PO TID 06/06/17 10/29/18 History HYDROcodone/APAP 7.5-325MG [[place] 1.5 tab PO DAILY PRN 10/26/18 10/29/18 History 7.5-325] Lidocaine 4% Cream [Lmx 4] 1 applic TOPICAL DAILY PRN 10/26/18 10/29/18 History Magnesium 400 mg PO DAILY 10/26/18 10/29/18 History Montelukast [Singulair] 10 mg PO DAILY 10/26/18 10/29/18 History Omeprazole 20 mg PO DAILY 10/26/18 10/29/18 History hydrOXYzine PAMOATE [Vistaril] 50 mg PO BID 10/26/18 10/29/18 History lamoTRIgine [LaMICtal] 100 mg PO DAILY 10/26/18 10/29/18 History Allergies Allergy/AdvReac Type Severity Reaction Status Date / Time adhesive Allergy tears Verified 10/29/18 12:33 skin- paper tape is ok adhesive tape Allergy tears Verified 10/29/18 12:33 skin- paper tape is ok bee pollen Allergy Swelling Verified 10/29/18 12:33 coconut Allergy Nausea & Verified 10/29/18 12:33 Vomiting Penicillins Allergy Swelling Verified 10/29/18 12:33 shellfish derived [Shellfish] Allergy Swelling Verified 10/29/18 12:33 Physical Exam Vitals: Vital Signs Pulse Resp BP Pulse Ox 10/29/18 12:37 87 16 136/85 97 - Constitutional General appearance: morbidly obese, severe distress - Respiratory Respiratory: bilateral: CTA - Cardiovascular Rhythm: regular - Neurologic Neuro exam of the upper extremities showed hyperactive deep tendon reflex bilaterally. Normal muscle strength in the left upper extremity. Claw hand on the right side. She has significant tenderness in the cervical paravertebral musculature and the trapezius muscles bilaterally and also all the way down her spine in the paravertebral area of the thoracic and lumbar spines. The patient was moving all the time during the interview and was not able to sta y still for long time. She was sitting in abnormal position on the examination table bending over back forward. She had difficulty expressing herself and finding the right word. She has abnormal movements in her neck and face intermittently. - Psychiatric Psychiatric: A&O x's 3, appropriate affect, intact judgment & insight Results Results: MRI of the cervical spine showed C4 5 and 56 cervical stenosis. Assessment and Plan Plan: This is a 33-year-old lady with significant psychiatric issues and what seems to be cervical stenosis and bilateral cervical radiculopathy. 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 The patient may benefit from getting cervical epidural steroid injection under fluoroscopic guidance at the C7-T1 level however it might be difficult to do this injection with her constant movements. The patient understands that she needs to be still in the prone position for this procedure to be done safely she denies taking any anticoagulants and she denies any history of diabetes.
== END | disposition home or self-care (01) ==
LOC: PNWHC3 12:26
PROVIDERS: ATTEND Anesthesiology
DX: G89.29 Other chronic pain (principal); S64.11XA Injury of median nerve at wrist and hand level of right arm, initial encounter; M21.511 Acquired clawhand, right hand; M54.2 Cervicalgia; M54.5 Low back pain; E66.01 Morbid (severe) obesity due to excess calories; R06.03 Acute respiratory distress; R20.0 Anesthesia of skin; F17.210 Nicotine dependence, cigarettes, uncomplicated; R45.851 Suicidal ideations; F32.9 Major depressive disorder, single episode, unspecified; J45.909 Unspecified asthma, uncomplicated; M25.562 Pain in left knee; F41.9 Anxiety disorder, unspecified; F12.90 Cannabis use, unspecified, uncomplicated; Z98.890 Other specified postprocedural states; Z88.0 Allergy status to penicillin; Z88.8 Allergy status to other drugs, medicaments and biological substances; Z91.030 Bee allergy status; Z91.018 Allergy to other foods; Z79.899 Other long term (current) drug therapy; Z79.891 Long term (current) use of opiate analgesic; Z91.013 Allergy to seafood; Z91.048 Other nonmedicinal substance allergy status; Z98.51 Tubal ligation status; Z68.36 Body mass index [BMI] 36.0-36.9, adult
CPT/HCPCS: 99211

== ENCOUNTER → 2018-11-23 | Outpatient (CLI) | payer OTHER | END | disposition home or self-care (01) | LOC: LABWHC1 09:21 | PROVIDERS: ATTEND Nurse Practitioner Family | DX: G35 Multiple sclerosis (principal) | CPT/HCPCS: 36415; 82040; 82042; 82784; 83916 ==

== ENCOUNTER 2019-04-04 09:46 | Emergency (ER) | payer OTHER ==
[2019-04-04 09:52] VITALS: RESP 18; TEMP 98.3
[2019-04-04] MEDS ORDERED: MORPHINE SULFATE 4 MG/ML SYRINGE IVP STA (10:20)
[2019-04-04] MEDS ORDERED: methylPREDNISolone SOD SUCCI 125 MG/2 ML VIAL IV STA (10:20)
[2019-04-04] MEDS ORDERED: ONDANSETRON 4 MG/2 ML VIAL IVP STA (10:20)
[2019-04-04] MEDS ORDERED: SODIUM CHLORIDE 0.9% 1,000 ML IV STA (10:20)
--- NOTE | 2019-04-04 10:25 | ED ---
General Adult HPI - General Chief complaint: Recheck/Abnormal Lab/Rx Stated complaint: MS/pain all over Time Seen by Provider: 04/04/19 10:01 Source: patient Mode of arrival: ambulatory Limitations: no limitations - History of Present Illness Initial comments: Patient is a 33-year-old female with past medical history of MS and chronic neck DDD, presenting to the emergency Department with complaints of an MS flare x 4 days. Patient states she had an appointment with her doctor approximately 4 days ago and stated she thought she was starting to have a flareup. suggested waiting another week for another follow-up but states if her pain got worse to come to the ER. Patient states she is having an increase in neck and back pain and her Percocets at home are not helping. Patient states she feels like she is shaking more as well. Patient stated she did have a seizure last week. Patient denies any fever, chills, abdominal pain. Patient states she is nauseous intermittently. No vomiting. No urinary complaints at this time. Patient has had no recent changes in her medications. Patient denies any other complaints at this time. - Related Data Home Medications Medication Instructions Recorded Confirmed Gabapentin [Neurontin] 1,200 mg PO TID 06/06/17 11/09/18 Lidocaine 4% Cream [Lmx 4] 1 applic TOPICAL QID 10/26/18 11/09/18 Magnesium 800 mg PO DAILY 10/26/18 11/09/18 Montelukast [Singulair] 10 mg PO DAILY 10/26/18 11/09/18 Omeprazole 20 mg PO DAILY 10/26/18 11/09/18 hydrOXYzine PAMOATE [Vistaril] 100 mg PO BID 10/26/18 11/09/18 lamoTRIgine [LaMICtal] 100 mg PO DAILY 10/26/18 11/09/18 oxyCODONE-APAP 10-325MG [Percocet 1 tab PO Q8HR PRN 11/09/18 11/09/18 10-325 mg] Previous Rx's Medication Instructions Recorded DULoxetine HCL [Cymbalta] 60 mg PO DAILY #30 cap 12/25/16 methylPREDNISolone [Medrol Dose 4 mg PO DIRECTED #1 pack 04/04/19 Pack] Allergies Allergy/AdvReac Type Severity Reaction Status Date / Time adhesive Allergy tears Verified 11/09/18 11:04 skin- paper tape is ok adhesive tape Allergy tears Verified 11/09/18 11:04 skin- paper tape is ok bee pollen Allergy Swelling Verified 11/09/18 11:04 coconut Allergy Nausea & Verified 11/09/18 11:04 Vomiting iodine Allergy Rash/Hives Verified 11/09/18 11:04 Penicillins Allergy Swelling Verified 11/09/18 11:04 shellfish derived [Shellfish] Allergy Swelling Verified 11/09/18 11:04 Review of Systems ROS Statement: Those systems with pertinent positive or pertinent negative responses have been documented in the HPI. ROS Other: All systems not noted in ROS Statement are negative. Past Medical History Past Medical History: Asthma, Pneumonia Additional Past Medical History / Comment(s): chronic neck and back pain,"white spots on my brain",chronic lt knee pain, right ganglion cyst. Steroids Sep 2018 ms History of Any Multi-Drug Resistant Organisms: None Reported Past Surgical History: Tubal Ligation Additional Past Surgical History / Comment(s): right hand surgery, left knee arthroscopy x2, right carpal tunnel release. Past Anesthesia/Blood Transfusion Reactions: No Reported Reaction, Motion Sickness, Postoperative Nausea & Vomiting (PONV) Additional Past Anesthesia/Blood Transfusion Reaction / Comment(s): states "wakes up during anesthesia" Past Psychological History: Anxiety, Depression Smoking Status: Current every day smoker Past Alcohol Use History: None Reported Past Drug Use History: Marijuana - Past Family History Mother Family Medical History: Cancer Additional Family Medical History / Comment(s): breast Father Family Medical History: Cancer Additional Family Medical History / Comment(s): colon,stomach General Exam - General Exam Comments Initial Comments: GENERAL: Disheveled appearance, appears to be uncomfortable. HEAD: Atraumatic, normocephalic. EYES: Pupils equal round and reactive to light, extraocular movements intact, sclera anicteric, conjunctiva are normal. ENT: TMs normal, nares patent, oropharynx clear without exudates. Moist mucous membranes. NECK: Decreased range of motion, pain at end range. Pain with palpation of the cervical spine. Without lymphadenopathy or JVD. LUNGS: Breath sounds clear to auscultation bilaterally and equal. No wheezes rales or rhonchi. HEART: Regular rate and rhythm without murmurs, rubs or gallops. ABDOMEN: Soft, nontender, normoactive bowel sounds. No guarding, no rebound. No masses appreciated. : Deferred EXTREMITIES: No pitting or edema. No clubbing or cyanosis. Lower extremity strength is 4 out of 5. Upper extremity strength is 5 out of 5. NEUROLOGICAL: Cranial nerves II through XII grossly intact. Normal speech. Patient requires assistance for walking secondary to chronic weakness and pain. Tremors present in upper and lower extremities, worse in upper extremities. PSYCH: Normal mood, normal affect. SKIN: Warm, Dry, normal turgor, no rashes or lesions noted. Limitations: no limitations Course Vital Signs 04/04/19 04/04/19 09:48 13:04 Temperature 98.3 F Pulse Rate 85 79 Respiratory 18 18 Rate Blood Pressure 129/85 125/83 O2 Sat by Pulse 98 97 Oximetry Medical Decision Making - Medical Decision Making Patient is a 33-year-old female with past medical history of MS and chronic neck and back pain presenting for possible MS flare 4 days. Patient states her pain medication at home is not working and she is having an increase in neck and back pain and unable to move patient states her tremors are also worse. On exam patient has weakness of her lower extremities that is chronic in nature. Patient also has tremors of her upper and lower extremities, worse in upper extremities. Patient denies any fever, chills. Vital signs are stable. CBC, CMP, UA are within normal limits. Patient was given fluids, Zofran, pain medicine and steroids. Patient reports improvement and is wanting to go home. Patient was sent home with small course of steroids. Return parameters were discussed with the patient she verbalized understanding. Patient will follow up with her doctor next week. Case discussed with Dr. Moore. - Lab Data Result diagrams: 04/04/19 10:53 04/04/19 12:05 Lab Results 04/04/19 04/04/19 04/04/19 Range/Units 10:53 10:53 10:53 WBC 9.1 (3.8-10.6) k/uL RBC 4.79 (3.80-5.40) m/uL Hgb 14.5 (11.4-16.0) gm/dL Hct 43.9 (34.0-46.0) % MCV 91.6 (80.0-100.0) fL MCH 30.3 (25.0-35.0) pg MCHC 33.1 (31.0-37.0) g/dL RDW 15.7 H (11.5-15.5) % Plt Count 362 (150-450) k/uL Neutrophils % 65 % Lymphocytes % 26 % Monocytes % 6 % Eosinophils % 2 % Basophils % 1 % Neutrophils # 5.9 (1.3-7.7) k/uL Lymphocytes # 2.4 (1.0-4.8) k/uL Monocytes # 0.5 (0-1.0) k/uL Eosinophils # 0.2 (0-0.7) k/uL Basophils # 0.1 (0-0.2) k/uL Sodium (137-145) mmol/L Potassium (3.5-5.1) mmol/L Chloride (98-107) mmol/L Carbon Dioxide (22-30) mmol/L Anion Gap mmol/L BUN (7-17) mg/dL Creatinine (0.52-1.04) mg/dL Est GFR (CKD-EPI)AfAm (>60 ml/min/1.73 sqM) Est GFR (CKD-EPI)NonAf (>60 ml/min/1.73 sqM) Glucose (74-99) mg/dL Calcium (8.4-10.2) mg/dL Total Bilirubin (0.2-1.3) mg/dL AST (14-36) U/L ALT (9-52) U/L Alkaline Phosphatase (38-126) U/L Total Protein (6.3-8.2) g/dL Albumin (3.5-5.0) g/dL Urine Color Colorless Urine Appearance Clear (Clear) Urine pH 7.5 (5.0-8.0) Ur Specific R[place]y 1.005 (1.001-1.035) Urine Protein Negative (Negative) Urine Glucose (UA) Negative (Negative) Urine Ketones Negative (Negative) Urine Blood Negative (Negative) Urine Nitrite Negative (Negative) Urine Bilirubin Negative (Negative) Urine Urobilinogen <2.0 (<2.0) mg/dL Ur Leukocyte Esterase Negative (Negative) Urine HCG, Qual Not Detected (Not Detectd) 04/04/19 Range/Units 12:05 WBC (3.8-10.6) k/uL RBC (3.80-5.40) m/uL Hgb (11.4-16.0) gm/dL Hct (34.0-46.0) % MCV (80.0-100.0) fL MCH (25.0-35.0) pg MCHC (31.0-37.0) g/dL RDW (11.5-15.5) % Plt Count (150-450) k/uL Neutrophils % % Lymphocytes % % Monocytes % % Eosinophils % % Basophils % % Neutrophils # (1.3-7.7) k/uL Lymphocytes # (1.0-4.8) k/uL Monocytes # (0-1.0) k/uL Eosinophils # (0-0.7) k/uL Basophils # (0-0.2) k/uL Sodium 139 (137-145) mmol/L Potassium 5.1 (3.5-5.1) mmol/L Chloride 105 (98-107) mmol/L Carbon Dioxide 29 (22-30) mmol/L Anion Gap 5 mmol/L BUN 13 (7-17) mg/dL Creatinine 0.72 (0.52-1.04) mg/dL Est GFR (CKD-EPI)AfAm >90 (>60 ml/min/1.73 sqM) Est GFR (CKD-EPI)NonAf >90 (>60 ml/min/1.73 sqM) Glucose 101 H (74-99) mg/dL Calcium 9.3 (8.4-10.2) mg/dL Total Bilirubin 0.2 (0.2-1.3) mg/dL AST 12 L (14-36) U/L ALT 15 (9-52) U/L Alkaline Phosphatase 79 (38-126) U/L Total Protein 7.0 (6.3-8.2) g/dL Albumin 4.0 (3.5-5.0) g/dL Urine Color Urine Appearance (Clear) Urine pH (5.0-8.0) Ur Specific [place] (1.001-1.035) Urine Protein (Negative) Urine Glucose (UA) (Negative) Urine Ketones (Negative) Urine Blood (Negative) Urine Nitrite (Negative) Urine Bilirubin (Negative) Urine Urobilinogen (<2.0) mg/dL Ur Leukocyte Esterase (Negative) Urine HCG, Qual (Not Detectd) Disposition Clinical Impression: Chronic neck and back pain, Multiple sclerosis Disposition: HOME SELF-CARE Condition: Stable Instructions (If sedation given, give patient instructions): Multiple Sclerosis (DC) Additional Instructions: Please return to the Emergency Department if symptoms worsen or any other concerns. Follow-up with PCP as discussed next week. Prescriptions: methylPREDNISolone [Medrol Dose Pack] 4 mg PO DIRECTED #1 pack Is patient prescribed a controlled substance at d/c from ED?: No Referrals: Ryanne Guillory DO [Primary Care Provider] - 1-2 days
[2019-04-04 11:19] LABS: Appearance,Urine Clear (Clear); Bilirubin,Urine Negative (Negative); Blood,Urine Negative (Negative); Color,Urine Colorless; Glucose,Urine (UA) Negative (Negative); Ketones,Urine Negative (Negative); Leukocyte Esterase,Urine Negative (Negative); Nitrite,Urine Negative (Negative); PH, Urine 7.5 (5.0-8.0); Protein,Urine Negative (Negative); Specific Gravity,Urine 1.005 (1.001-1.035); Urobilinogen,Urine <2.0 mg/dL (<2.0)
[2019-04-04 11:22] LABS: Basophils # (A) 0.1 k/uL (0-0.2); Basophils % (A) 1 %; Eosinophils # (A) 0.2 k/uL (0-0.7); Eosinophils % (A) 2 %; HCT 43.9 % (34.0-46.0); HGB 14.5 gm/dL (11.4-16.0); Lymphocytes # (A) 2.4 k/uL (1.0-4.8); Lymphocytes % (A) 26 %; MCH 30.3 pg (25.0-35.0); MCHC 33.1 g/dL (31.0-37.0); MCV 91.6 fL (80.0-100.0); Mean Platelet Volume 9.5; Monocytes # (A) 0.5 k/uL (0-1.0); Monocytes % (A) 6 %; Neutrophils # (A) 5.9 k/uL (1.3-7.7); Neutrophils % (A) 65 %; Platelet Count 362 k/uL (150-450); RBC 4.79 m/uL (3.80-5.40); RDW 15.7 % (11.5-15.5); WBC 9.1 k/uL (3.8-10.6)
[2019-04-04 12:30] LABS: ALT 15 U/L (9-52); AST 12 U/L (14-36); African American GFR (CKD) >90 (>60 ml/min/1.73 sqM); Alkaline Phosphatase 79 U/L (38-126); Anion Gap 5 mmol/L; Blood Urea Nitrogen 13 mg/dL (7-17); Calcium 9.3 mg/dL (8.4-10.2); Carbon Dioxide 29 mmol/L (22-30); Chloride 105 mmol/L (98-107); Glucose 101 mg/dL (74-99); Potassium 5.1 mmol/L (3.5-5.1); Sodium 139 mmol/L (137-145); Total Bilirubin 0.2 mg/dL (0.2-1.3)
[2019-04-04] MEDS ORDERED: MORPHINE SULFATE 2 MG/ML SYRINGE IVP ONE (12:46)
[2019-04-04 13:11] VITALS: BP 125/83; PULSE 79
== END 2019-04-04 13:11 | disposition home or self-care (01) ==
LOC: EC 09:46
DX: G89.29 Other chronic pain (principal); M54.9 Dorsalgia, unspecified; M54.2 Cervicalgia; G35 Multiple sclerosis; G40.909 Epilepsy, unspecified, not intractable, without status epilepticus; R53.1 Weakness; F41.9 Anxiety disorder, unspecified; F17.200 Nicotine dependence, unspecified, uncomplicated; J30.1 Allergic rhinitis due to pollen; Z79.899 Other long term (current) drug therapy; Z91.030 Bee allergy status; Z91.018 Allergy to other foods; Z91.048 Other nonmedicinal substance allergy status; Z91.041 Radiographic dye allergy status; Z91.013 Allergy to seafood; Z88.0 Allergy status to penicillin
CPT/HCPCS: 96374; 96375 ×2; 96376; 96361 ×2; 99283; 36415; 80053; 85025; 81003; 81025; J2270 ×2; J2930; J2405

== ENCOUNTER → 2020-04-26 | Outpatient (CLI) | payer OTHER ==
--- NOTE | 2020-04-26 16:29 | MR ---
EXAMINATION TYPE: MR brain/cspine wo/w DATE OF EXAM: 04/26/2020 COMPARISON: Prior cervical spine MRI 03/04/2017, prior brain MRI 10/12/2009 HISTORY: MS and cervical stenosis TECHNIQUE: Multiplanar, multisequence images of the brain and brainstem, cervical spine is performed without and with IV contrast, utilizing 11 mL intravenous Gadavist . FINDINGS: Brain infiltration: Diffusion weighted images demonstrate no evidence of a recent infarct or other di ffusion abnormality. There is no extra-axial fluid collection. There is been interval development o f scattered hyperintensities on inversion recovery and T2-weighted sequences within the deep and subc ortical frontal white matter, there are approximately 40 lesions. The largest lesion in the right fro ntal lobe on axial image #21 measures 9 to 10 mm on axial image 21, largest on the left on axial imag e #18 measures 5 to 6 mm. The ventricular system and cisternal spaces are normal in size and appearan ce. The brain volume is age appropriate. Midline structures demonstrate normal morphology. The craniocervical junction appears within normal limits. Post contrast images demonstrate no abnormal enhancement. The dural venous sinuses appear pa tent. The visualized sinuses are remarkable for extensive inflammatory change in the left maxillary s inus, right maxillary sinus has improved as compared to prior and the globes are intact. Inflammatory changes are present in the right mastoid air cells and temporal bone, similar findings seen on prior exam. IMPRESSION: Findings are consistent with patient's history of multiple sclerosis, no enhancing lesion s. Temporal bone inflammatory change may be better evaluated with CT. Extensive left maxillary sinusi tis. Cervical spine MRI: The exam is stable. Posterior disc herniations at C4-5 and C5-6 causing anterior mass effect on the thecal sac and contact with the cervical cord. Cervical cord signal is maintained. Spinal stenosis is mild to moderate at C5-6. No significant foraminal encroachment. Small posterior disc herniation at C6-7 is present in the left posterior paracentral location similar to prior. Cervi stephane vertebral bodies are preserved height and alignment. There is loss of normal cervical lordosis. L oss of disc height and signal is present at C4-5, C5-6 consistent with disc desiccation and degenerat darryn disc disease. Endplate marrow signal changes compatible with degenerative disc disease. There is no abnormal enhancement upon contrast administration. IMPRESSION: Stable posterior disc herniations causing mass effect on the cervical cord. No abnormal e nhancement, abnormal cord signal.
== END | disposition home or self-care (01) ==
LOC: RADMRIMAIN 14:32
PROVIDERS: ATTEND Psychiatry & Neurology Neurology
DX: M50.221 Other cervical disc displacement at C4-C5 level (principal); M53.82 Other specified dorsopathies, cervical region
CPT/HCPCS: 70553; 72156; A9585

== ENCOUNTER → 2020-05-11 | Outpatient (CLI) | payer OTHER | END | disposition home or self-care (01) | LOC: RADMRIMAIN 13:01 | PROVIDERS: ATTEND Psychiatry & Neurology Neurology | DX: Z53.9 Procedure and treatment not carried out, unspecified reason (principal) ==

== ENCOUNTER → 2020-11-01 | Outpatient (CLI) | payer OTHER | END | disposition home or self-care (01) | LOC: RADMRIMAIN 15:52 | DX: Z53.9 Procedure and treatment not carried out, unspecified reason (principal) ==

== ENCOUNTER → 2021-12-05 | Outpatient (CLI) | payer OTHER ==
[2021-12-05 10:03] VITALS: BP 119/83; PULSE 90; RESP 18; TEMP 98.2
--- NOTE | 2021-12-05 10:03 | P.CON ---
Consult Note - . Consult date: 12/05/21 Assessment/Plan:: HISTORY OF PRESENT ILLNESS: 36 yr old female as a referral from Dr Angel presents today with chronic and severe lumbar pain secondary to anterolisthesis, disc bulges, sondylolysis, DDD, BL neuroforaminal stenoses and BL S1 abutment for evaluation. Pt states pain is 9/10 in intensity, constant, sharp, achy, crushing in character with radiation of pain up and down the spinal column. Pain is provoked with bending, lifting and twisting. Pain is relieved with medications, topicals, at home PT regimen, use of a cane for ambulation, repositioning and rest. Past Medical History: Asthma, Pneumonia, MDD, Anxiety Past Surgical History: Tubal Ligation, R Hand Surgery, L Knee Arthroscopy x 2. R Carpal Tunnel Release Social History: Daily tobacco user, Cannabis use, occasional ETOH use. Uses cane for ambulatory assistance. Wears a cervical collar due to pain. Family History: Mother- Breast CA. Father- Colon,stomach CA All: See list Meds: See list REVIEW OF ORGAN SYSTEMS: CONSTITUTIONAL: No fevers or chills. No recent weight loss. HEENT: No visual acuity loss, eye pain, difficulties with hearing. No nosebleeds. No difficulty swallowing. RESPIRATORY: Denies any troubles with breathing or dyspnea on exertion. CARDIOVASCULAR: Denies any chest pain, palpitations, or recent heart attacks. GASTROINTESTINAL: Denies fatty food intolerance. Has change in bowel habits and gas bloat. GENITOURINARY: Denies any blood in urine. Has increased urinary frequency. NEUROLOGICAL: + numbness and tingling along the distal extremities. No seizure disorders or headaches. MUSCULOSKELETAL: + back pain SKIN: No skin cancer. No rash. PSYCHIATRIC: Denies current depression or suicidal thoughts. ENDOCRINE: Denies current thyroid disorders. Denies any blood sugar glucose intolerance. HEME/LYMPHATIC: Denies any lumps and bumps around the neck. History of deep venous thrombosis. ALLERGY/IMMUNOLOGY: No immunoglobulin therapy. No immune deficiencies. BREAST: Denies current breast lumps, pain or nipple discharge. Physical Examinations : Constitutional : Cooperative , not in acute distress . HEENT: Neck supple. No Lymphadenopathy. Normal thyroid size . Eyes no ptosis , no icterus, no photophobia . Hearing intact. Normal oropharynx. No Thrush. Respiratory : Chest clear to auscultations bilaterally. No wheezing. No rhonchi. Cardiovascular : Regular rate and rhythm , S1 / S2. No S3 . No S4. Gastrointestinal : Abdomen soft. No tenderness. Bowel sounds x 4. No organomegaly . Genitourinary : Deferred. Neurologic : Cranial nerve II to XII intact. No focal neurological deficits. Psychiatric : alert & oriented x 3. Matching mood & appropriate affect. Judgment & insight intact. Lymphatic No Lymphadenopathy. Musculoskeletal : Cervical Spine Motor strength in the deltoid and biceps: Normal right side. Normal Left side Motor strength biceps and the wrist extensors: Normal right side . Normal left side Motor strength in the triceps muscle: Normal right side. Normal left side Deep tendon reflexes: Normal at the biceps. Normal at Brachioradialis. Normal at triceps Cervical facet loading test: positive bilaterally Spurling test: positive bilaterally Neck distraction test: positive bilaterally Kim sign: positive bilaterally Lumbar spine Motor strength lower extremities ,thigh and legs 5/5 Right side , 5/5 Left side Deep tendon reflexes : Normal Knee Jerk. Normal Ankle Jerk Vertebral body tenderness over L5 Lumbar facet Loading Test: positive Right / positive Left Range of motion of the lumbar spine Flexion 30 degrees, extension 10 degrees Straight Leg Raise test: Left/ Right positive at degree Mackenzie test: positive right / positive left. Severe tenderness over the Sacroiliac joint on the Right / Left sides Gaenslen test: positive bilaterally Seated flexion test: positive bilateral ly. Imaging: MRI without contrast from 11/06/21 reviewed. Assessment/ Plan : Lumbar spondylolysis, Lumbar DDD, Lumbar anterolisthesis Recommendation of PT 3 times per week x 6 weeks. Recommendation of LESI L5-S1. May need a series of injections, up to 3 within a 6 mo period, to obtain optimal pain relief. Risks, benefits of procedure discussed and patient verbalized understanding. Denies aspirin or anti- coagulant use or medical history of diabetes. All questions answered. I have spent greater than 50 minutes on patient care today. Dr Mustafa was available by phone for the evaluation of this patient. The time was used to review the medical records including relevant urine studies and Prescription history (MAPs), review of the available imaging, evaluation and examination of the patient, coordination of care with the medical staff and if applicable referring physicians, as well as creation of the medical record PQRS Measure Charge Sheet Mode of Arrival: Ambulatory - Pain Location Bilateral Upper Neck Non-Pharmacological Interventions: Heat, Home Exercise, Inactivity, Meditation, Stretching Pharmacological Interventions: Scheduled Medication Bilateral Upper Medial Back Non-Pharmacological Interventions: Elevation, Heat, Home Exercise, Meditation, Relaxation Technique, Stretching PQRS Narrative: Smoking Status Current every day smoker Blood Pressure 119/83 Pain Intensity [Bilateral 9 Upper Medial Back] Pain Intensity [Bilateral 9 Upper Neck] Scale Used Numeric (1 - 10) Hx Alcohol Use (MH) No Home Medications: Ambulatory Orders DULoxetine HCL [Cymbalta] 60 mg PO DAILY #30 cap 12/25/16 Gabapentin [Neurontin] 1,200 mg PO TID 06/06/17 Lidocaine 4% Cream [Lmx 4] 1 applic TOPICAL QID 10/26/18 Magnesium 800 mg PO DAILY 10/26/18 Montelukast [Singulair] 10 mg PO DAILY 10/26/18 Omeprazole 20 mg PO DAILY 10/26/18 hydrOXYzine pamoate [Vistaril] 100 mg PO BID 10/26/18 lamoTRIgine [LaMICtal] 100 mg PO DAILY 10/26/18 oxyCODONE-APAP 10-325MG [Percocet 10-325 mg] 1 tab PO Q8HR PRN 11/09/18 methylPREDNISolone [Medrol Dose Pack] 4 mg PO DIRECTED #1 pack 04/04/19
== END ==
LOC: PNWHC3 09:13
PROVIDERS: ATTEND Specialist
DX: M47.816 Spondylosis without myelopathy or radiculopathy, lumbar region (principal); M51.36 Other intervertebral disc degeneration, lumbar region; F17.200 Nicotine dependence, unspecified, uncomplicated; J45.909 Unspecified asthma, uncomplicated; F41.9 Anxiety disorder, unspecified; Z91.048 Other nonmedicinal substance allergy status; Z91.018 Allergy to other foods; Z88.0 Allergy status to penicillin; Z91.041 Radiographic dye allergy status; Z91.013 Allergy to seafood
CPT/HCPCS: 99211

== ENCOUNTER 2024-12-01 15:46 | Inpatient (IN) | payer MEDICAID, OTHER ==
[2024-12-01 17:48] LABS: Appearance,Urine Clear (Clear); Bacteria,Urine Rare /hpf; Bilirubin,Urine Negative (Negative); Blood,Urine Large (Negative); Color,Urine Colorless; Glucose,Urine (UA) Negative (Negative); Ketones,Urine Trace (Negative); Leukocyte Esterase,Urine Small (Negative); Mucus,Urine Rare /hpf; Nitrite,Urine Negative (Negative); Protein,Urine Negative (Negative); RBC,Urine 9 /hpf (0-5); Specific Gravity,Urine 1.005 (1.001-1.035); Squamous Epithelial Cell,Urine 2 /hpf (0-4); Urobilinogen,Urine <2.0 mg/dL (<2.0); WBC,Urine 2 /hpf (0-5)
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
[2024-12-01 18:15] LABS: Amphetamine Screen,Urine Detected (NotDetected); Barbiturate Screen,Urine Not Detected (NotDetected); Benzodiazepines Screen,Urine Not Detected (NotDetected); Cocaine Screen,Urine Not Detected (NotDetected); Methadone Screen, Urine Not Detected (NotDetected); Opiate Screen,Urine Not Detected (NotDetected); Oxycodone Screen, Urine Not Detected (NotDetected); Phencyclidine Screen,Urine Not Detected (NotDetected); Tricyclic Antidepressant,Urine Not Detected (NotDetected); Urn Cannabinoid Scrn Detected (NotDetected)
[2024-12-01] MEDS ORDERED: BUPRENORPHINE-NALOX 8-2 MG TAB 1 EACH TAB.SUBL SL SCH (19:00)
[2024-12-01] MEDS ORDERED: MAGNESIUM HYDROXIDE 2,400 MG/30 ML CUP PO PRN (19:47)
[2024-12-01] MEDS ORDERED: ACETAMINOPHEN TAB 325 MG TAB PO PRN (19:47)
[2024-12-01] MEDS ORDERED: LORazepam 2 MG/ML INJ IM PRN (19:49)
[2024-12-01] MEDS ORDERED: HALOPERIDOL LACTATE 5 MG/ML 1 ML VIAL IM PRN (19:49)
[2024-12-01] MEDS: LORazepam 1 MG TAB PO PRN (20:30)
[2024-12-02] MEDS ORDERED: NON FORMULARY DRUG (Buprenorphine/Naloxone 8mg/2mg 1 EACH Film) SL SCH (09:00)
[2024-12-02] MEDS: NICOTINE 14MG/24HR PATCH TRANSDERM SCH (09:59)
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
[2024-12-02] MEDS: IBUPROFEN 600 MG TAB PO PRN (17:31)
[2024-12-02] MEDS: haloperidoL 5 MG TAB PO PRN (17:31)
[2024-12-02] MEDS: PALIPERIDONE 6 MG TAB.ER.24 PO SCH (17:31)
[2024-12-03] MEDS: LIDOCAINE 4% PATCH TOPICAL ONE (11:07)
[2024-12-03] MEDS: ARIPiprazole 10 MG TAB PO SCH (11:27)
--- NOTE | 2024-12-03 12:01 | P.PN ---
Progress Note - Text Progress Note Date: 12/03/24 Interval History: Patient was seen wandering the hallways and was directable and agreeable to sp eak with ticket writer in the halls alone. Patient did appear less agitated/irritable today however continues to be fixated on being prescribed her "reagan" due to pain, denying any history of opiate abuse. Patient was informed of the need to have an outpatient doctor who is already prescribing this medication as this is a controlled substance and she does not have a PCP set up who can continue filling this medication upon discharge. Patient was upset to hear this, stating that on the outside she is able to easily get this from the Internet or a phone call however this was discouraged. Offered patient lidocaine patch as an alternative for her back pain to which she agreed to try. She feels as though she slept too much on the Invega and was open to trying Abilify as an alternative with information sheet handed to her. She states she has been trying to go to groups, fixated on being discharged from here. At this time patient denies any suicidal or homicidal ideations, intent or plan. Patient denies any auditory, visual hallucinations and denies any paranoia or delusions. Patient has been compliant with meds. Mental Status Exam: General Appearance: Patient appears to be stated age is alert, directable, and cooperative. Behavior: She is restless however improved from yesterday Speech: Patient's speech is fluent and nonpressured. Mood/Affect: Mood is improving mildly, affect is congruent and labile. Suicidality/Homicidality: Patient denies having any suicidal or homicidal ideation intent or plan. Perceptions: Patient denies any visual hallucinations and denies any auditory hallucinations Though content/process: There is no evidence of any overt delusional thought content and thought process is linear, mild paranoia. Memory and concentration: AOX3, grossly intact for the purposes of this session Judgment and insight: Historically poor however improving mildly Assessment Psychosis, unspecified Rule out substance-induced psychotic disorder versus bipolar 1 disorder History of PTSD Stimulant use disorder Cannabis use disorder Nicotine dependence Plan: -Patient continues to meet criteria for inpatient psychiatric admission for symptom stabilization and safety. Patient has not signed adult voluntary form and medication consent and was placed in patient's chart. -Medications: Discontinue Invega and start Abilify 10 mg daily for psychosis -When necessary Ativan and Haldol for agitation/aggression. -Labs: Patient refused labs however this will be encouraged to be completed -NRT - nicotine patch -SW on board for discharge planning. Encouraged the patient to participate in milieu. Currently awaiting deferral with contracts attorney and court date.
[2024-12-03] MEDS ORDERED: ALBUTEROL NEBULIZED 2.5 MG/3 ML INHALATION PRN (21:46)
--- NOTE | 2024-12-03 21:47 | P.MDCNMH ---
<Maryjane Daniel - Last Filed: 12/03/24 21:28> History of Present Illness H&P Date: 12/03/24 Patient is a 39-year-old female with asthma, anxiety, bipolar disorder, PTSD, depression and current daily smoker and history of marijuana, amphetamines and heroin use for medical evaluation here for management of psychosis. Patient was reported to have arrived in the ED agitate and restless. She was released from residential on day of admission but was petitioned by the residential counselor as she was "delusional, nonsensical and lacked insight into her mental health". She was also reported to have statements of harming her mother at home as she believed that the person was not her mother and it was just someone pretending to be her. On admission, she denied suicidal ideation or homicidal ideation. At time of my evaluation, patient did not have any new symptoms or complaints. She denied chest pain, shortness of breath, palpitations, headaches, abdominal pain, nausea, vomiting, diarrhea, hematuria, dysuria recent illness or hospitalization. Urinalysis showed trace ketones, large blood, small leukocyte esterase, rare bacteria, mucus, negative hCG. UDS showed positive for amphetamines, methamphetamines and marijuana. COVID negative. Temp 97 Fahrenheit, W[place] 132, RR 20, BP 118/77, O2 saturation 97% on room air Review of systems: Pertinent positives and negatives as discussed in HPI, a complete review of systems was performed and all other systems are negative. Physical examination: Vital signs reviewed General: non toxic, no distress, appears at stated age, room air Derm: no unusual rashes/lesions, warm Head: atraumatic, normocephalic, symmetric Eyes: EOMI, anicteric sclera, pupils equal round reactive to light ENT: Nose and ears atraumatic Neck: No cervical lymphadenopathy, trachea midline, supple Mouth: no lip lesion, mucus membranes moist Cardiovascular: S1S2 reg, no murmur Lungs: CTA bilateral, no rhonchi, no rales, no accessory muscle use Abdominal: soft, nondistended, nontender to palpation, no guarding Ext: muscle strength 5 out of 5 in all 4 extremities grossly, no gross muscle atrophy, no contractures, positive dorsalis pedis pulse bilateral, no edema Neuro: CN II-XI grossly intact, no gross focal neuro deficits Psych: Alert, oriented, appropriate affect and mood Assessment/Plan: #. Chronic conditions: Asthma -Patient has not had any exacerbations in the past year and has not needed her inhaler recently - Albuterol inhaler as needed for shortness of breath #. Psychosis, possibly substance-induced vs bipolar disorder #. Bipolar disorder #. PTSD #. Amphetamine and methamphetamine use disorder #. Marijuana use disorder -Suicide precautions -Currently on Abilify 10mg daily, Trazodone 50mg daily. On Ativan and Haldol for agitation and/or anxiety. Primary management per psychiatry service -Would benefit from nicotine patch We appreciate being part of this patient's care. Thank you for this consult. Maryjane Daniel MD PGY-1/[employer] Internal Medicine Dictation was produced using [employer] dictation software. please excuse any grammatical, word or spelling errors. Past Medical History Past Medical History: Asthma, Pneumonia Additional Past Medical History / Comment(s): chronic neck and back pain,"white spots on my brain",chronic lt knee pain, right ganglion cyst. Steroids Sep 2018 ms History of Any Multi-Drug Resistant Organisms: None Reported Past Surgical History: Tubal Ligation Additional Past Surgical History / Comment(s): right hand surgery, left knee arthroscopy x2, right carpal tunnel release. Past Anesthesia/Blood Transfusion Reactions: No Reported Reaction, Motion Sickness, Postoperative Nausea & Vomiting (PONV) Additional Past Anesthesia/Blood Transfusion Reaction / Comment(s): states "wakes up during anesthesia" Past Psychological History: Anxiety, Depression Smoking Status: Current some day smoker Past Alcohol Use History: None Reported Past Drug Use History: None Reported - Past Family History Mother Family Medical History: Cancer Additional Family Medical History / Comment(s): breast Father Family Medical History: Cancer Additional Family Medical History / Comment(s): colon,stomach Medications and Allergies Home Medications Medication Instructions Recorded Confirmed Type No Known Home Medications 12/02/24 12/02/24 History Allergies Allergy/AdvReac Type Severity Reaction Status Date / Time adhesive Allergy tears Verified 12/01/24 16:57 skin- paper tape is ok adhesive tape Allergy tears Verified 12/01/24 16:57 skin- paper tape is ok bee pollen Allergy Swelling Verified 12/01/24 16:57 bee venom protein (honey bee) Allergy Swelling Verified 12/01/24 16:57 coconut Allergy Nausea & Verified 12/01/24 16:57 Vomiting iodine Allergy Rash/Hives Verified 12/01/24 16:57 Penicillins Allergy Swelling Verified 12/01/24 16:57 shellfish derived [Shellfish] Allergy Swelling Verified 12/01/24 16:57 Physical Exam Vitals: Vital Signs Temp Pulse Resp BP Pulse Ox 12/03/24 08:04 97.0 F L 132 H 20 118/77 97 Cranial Nerve Examination - Cranial Nerves Cranial Nerve II- Optic: Intact Cranial Nerve III- Oculomotor: Intact Cranial Nerve IV- Trochlear: Intact Cranial Nerve V- Trigeminal: Intact Cranial Nerve - Abducens: Intact Cranial Nerve VII- Facial: Intact Cranial Nerve VIII- Auditory: Intact Cranial Nerve IX- Glossopharyngeal: Intact Cranial Nerve X- Vagus: Intact Cranial Nerve XI- Accessory: Intact Cranial Nerve XII- Hypoglossal: Intact <Mateo Castillo - Last Filed: 12/04/24 01:19> History of Present Illness I have seen and evaluated the patient today. I Discussed the case with the resident and agree with the resident's findings I edited the assessment and plan as necessary as documented in the resident's note. Physical Exam Vitals: Vital Signs Temp Pulse Resp BP Pulse Ox 12/03/24 08:04 97.0 F L 132 H 20 118/77 97 Cranial Nerve Examination - Cranial Nerves Cranial Nerve II- Optic: Intact Cranial Nerve III- Oculomotor: Intact Cranial Nerve IV- Trochlear: Intact Cranial Nerve V- Trigeminal: Intact Cranial Nerve - Abducens: Intact Cranial Nerve VII- Facial: Intact Cranial Nerve VIII- Auditory: Intact Cranial Nerve IX- Glossopharyngeal: Intact Cranial Nerve X- Vagus: Intact Cranial Nerve XI- Accessory: Intact Cranial Nerve XII- Hypoglossal: Intact
[2024-12-04] MEDS: LIDOCAINE 4% PATCH TOPICAL SCH (09:36)
--- NOTE | 2024-12-04 13:43 | P.PN ---
Progress Note - Text Progress Note Date: 12/04/24 Interval History: Patient was seen wandering the hallways and was directable and agreeable to bel maddox with script writer in the office. The patient notes that she still has the tremors but less so after starting the Abilify. She notes that initially she was brought into the senior care because she was claiming that there were children's underwear in the back lot of [employer] and she felt that something wrong was going on. She continues to believe this. She notes that she slept over 18 hours last night. She notes that her energy is improving. She denies any problems with her appetite or concentration. At this time patient denies any suicidal or homical ideations, intent or plan. Patient denies any auditory, visual hallucinations and denies any paranoia or delusions. Patient is having some tremors with the medication. Mental Status Exam: General Appearance: The patient appeared in her pajamas and shirt. She did have tremors throughout the interview and tremors in her voice. Behavior: [Patient is calmly seated without any agitated behavior.] Speech: Patient's speech is fluent and tremors in her voice. Mood/Affect: Mood is improving mildly, affect is congruent and constricted. Suicidality/Homicidality: Patient denies having any suicidal or homicidal ideation intent or plan. Perceptions: Patient denies any visual hallucinations [and denies any auditory hallucinations] Though content/process: [There is no evidence of any delusional thought content and thought process is linear and goal-directed.] Memory and concentration: AOX3, grossly intact for the purposes of this session Judgment and insight: Improving mildly Diagnosis: Psychosis, unspecified Rule out substance-induced psychotic disorder versus bipolar 1 disorder History of PTSD Stimulant use disorder Cannabis use disorder Nicotine dependence Assessment: Patient continues to have tremors at this point we will reevaluate tomorrow and if they continue will consider Cogentin or Benadryl. Meantime we will reduce the Abilify. Additionally due to the history of methamphetamine use we will give her a one-time shot of vitamin B12 1000 mcg to help preserve the neurons. At this time patient is not stable enough to leave. She remains delusional at this point. Plan: -Patient continues to meet criteria for inpatient psychiatric admission for symptom stabilization and safety. Patient has not signed adult voluntary form and medication consent and was placed in patient's chart. -Medications: Reduce Abilify 5 mg daily for psychosis Once Vit B-12 1000mg for Meth use -When necessary Ativan and Haldol for agitation/aggression. -Labs: Patient refused labs however this will be encouraged to be completed -NRT - nicotine patch -SW on board for discharge planning. Encouraged the patient to participate in milieu. Currently awaiting deferral with civil litigation attorney and court date.
[2024-12-04] MEDS: CYANOCOBALAMIN 1,000 MCG/ML 1 ML VIAL IM ONE (14:22)
[2024-12-04] MEDS: traZODone HCL 50 MG TAB PO PRN (21:11)
[2024-12-05] MEDS: ARIPiprazole 5 MG TAB PO SCH (08:23)
--- NOTE | 2024-12-05 14:53 | P.PN ---
Progress Note - Text Progress Note Date: 12/05/24 Interval History: Patient was seen wandering the hallways and was directable and agreeable to sp varsha with feature writer in the office. Prior to interviewing the patient she was observed on the unit being very energetic and vocal. When asking her about this she notes that she was drinking too much caffeine because the trazodone was making her too sleepy. She denies any racing thoughts or mood swings. She notes that her anger is under control and she has been attending all groups since changing the dose of Abilify from 10 mg to 5 mg. She notes that she only slept 12 hours last night. She feels that her energy, appetite and concentration are good. When asking her about the [employer] parking lot she notes that "I have not thought about it until now but I hope the little girl is fine". At this time patient denies any suicidal or homical ideations, intent or plan. Patient denies any auditory, visual hallucinations and denies any paranoia or delusions. Patient denies any side effects from the medications and has been compliant with meds. Mental Status Exam: General Appearance: [Patient appears to be stated age is alert, directable, and cooperative.] Behavior: Patient appeared to be somewhat hyper but when sitting down she was able to compose herself Speech: Patient's speech is fluent and pressured. Mood/Affect: Mood is improving mildly, affect is congruent and constricted. Suicidality/Homicidality: Patient denies having any suicidal or homicidal ideation intent or plan. Perceptions: Patient denies any visual hallucinations and denies any auditory hallucinations Though content/process: There is no evidence of any delusional thought content and thought process is linear and goal-directed. Memory and concentration: AOX3, grossly intact for the purposes of this session Judgment and insight: Improving mildly Diagnosis: Psychosis, unspecified Rule out substance-induced psychotic disorder versus bipolar 1 disorder History of PTSD Stimulant use disorder Cannabis use disorder Nicotine dependence Assessment: The patient has explained that she has been drinking too much caffeine because of the oversedation from the Trazodone. There are some questions over this but she was able to compose herself during the interview.she notes that she has a hearing tomorrow and Dr. Moore will be back tomorrow. Continue observation at this time. Plan: -Patient continues to meet criteria for inpatient psychiatric admission for symptom stabilization and safety. Patient has not signed adult voluntary form and medication consent and was placed in patient's chart. -Medications: Continue Abilify 5 mg daily for psychosis -When necessary Ativan and Haldol for agitation/aggression. -Labs: Patient refused labs however this will be encouraged to be completed -NRT - nicotine patch -SW on board for discharge planning. Encouraged the patient to participate in milieu. Currently awaiting deferral with banking attorney and court date.
[2024-12-06 07:50] VITALS: RESP 18
[2024-12-06] MEDS: MAG HYDROX/AL HYDROX/SIMETH 355 ML BOTTLE PO PRN (11:34)
--- NOTE | 2024-12-06 13:26 | P.PN ---
Progress Note - Text Progress Note Date: 12/06/24 Interval History: Patient was seen wandering the hallways and was directable and agreeable to sp kamk with show card writer in the office. Patient appears more stable in mood, developing better insight into her need for treatment in addition to substance abuse. She states being open to outpatient substance use help as she now realizes she has been using substances to cope with her underlying mental illness. Patient was intermittently tearful during encounter, however she does report feeling more clear. Deferral scheduled today. She was goal oriented. At this time patient denies any suicidal or homicidal ideations, intent or plan. Patient denies any auditory, visual hallucinations and denies any paranoia or delusions. Patient denies any side effects from the medications and has been compliant with meds. Mental Status Exam: General Appearance: Patient appears to be stated age is alert, directable, and cooperative. Behavior: There is evidence of psychomotor restlessness however improved from previous encounter. She is intermittently tearful Speech: Patient's speech is fluent and nonpressured. Mood/Affect: Mood is improving mildly, affect is congruent and more reactive. Suicidality/Homicidality: Patient denies having any suicidal or homicidal ideation intent or plan. Perceptions: Patient denies any visual hallucinations and denies any auditory hallucinations Though content/process: There is no evidence of any delusional thought content and thought process is linear and goal-directed. Memory and concentration: AOX3, grossly intact for the purposes of this session Judgment and insight: Improving mildly Assessment Psychosis, unspecified Rule out substance-induced psychotic disorder versus bipolar 1 disorder History of PTSD Stimulant use disorder Cannabis use disorder Nicotine dependence Plan: -Patient continues to meet criteria for inpatient psychiatric admission for s ymptom stabilization and safety. Patient has not signed adult voluntary form and medication consent and was placed in patient's chart. -Medications: Continue Abilify 5 mg daily for psychosis -When necessary Ativan and Haldol for agitation/aggression. -Labs: Patient refused -NRT - nicotine patch -SW on board for discharge planning. Encouraged the patient to participate in milieu. Anticipate discharge home tomorrow. Deferral set for today
[2024-12-06 21:24] VITALS: PULSE 98
[2024-12-07 08:20] VITALS: BP 140/78; TEMP 97.4
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
== END 2024-12-07 13:53 | disposition home or self-care (01) | DRG 750 ==
LOC: EC 15:46 → 3MHU 19:43
PROVIDERS: ADMIT Psychiatry & Neurology Psychiatry; ATTEND Psychiatry & Neurology Psychiatry
DX: F29 Unspecified psychosis not due to a substance or known physiological condition (principal); F12.10 Cannabis abuse, uncomplicated; F15.10 Other stimulant abuse, uncomplicated; F31.9 Bipolar disorder, unspecified; J45.909 Unspecified asthma, uncomplicated; F41.9 Anxiety disorder, unspecified; F43.10 Post-traumatic stress disorder, unspecified; G89.29 Other chronic pain; F17.210 Nicotine dependence, cigarettes, uncomplicated; M54.2 Cervicalgia; M25.562 Pain in left knee; G47.9 Sleep disorder, unspecified; M54.9 Dorsalgia, unspecified; R82.4 Acetonuria; Z88.0 Allergy status to penicillin; Z88.8 Allergy status to other drugs, medicaments and biological substances; Z71.51 Drug abuse counseling and surveillance of drug abuser
CPT/HCPCS: 80306; 81001; 81025; 82075; 87635; 99285